=== PATIENT | female | born 1995 | race Caucasian/White ===

== ENCOUNTER 2016-11-06 22:28 | Emergency (ER) | payer MEDICAID ==
[2016-11-06] MEDS ORDERED: Hydromorphone 1 mg/ml Ampule IV ONE (22:55)
[2016-11-06] MEDS ORDERED: Phenergan 25 MG INJ IV ONE (22:55)
[2016-11-06] MEDS ORDERED: Phenergan 25 MG INJ ONE (23:00)
[2016-11-06] MEDS ORDERED: Sodium Chloride 0.9% 1000 ML 1,000 ML IV SCH (23:00)
[2016-11-06] MEDS ORDERED: Sodium Chloride 0.9% 1000 ML 1,000 ML ONE (23:01)
[2016-11-06] MEDS ORDERED: Hydromorphone 1 mg/ml Ampule ONE (23:01)
--- NOTE | 2016-11-06 23:01 | ERPHSYRPT ---
- History of Present Illness Time Seen by Provider: 11/06/16 22:46 Source: patient Exam Limitations: no limitations Patient Subjective Stated Complaint: "i am having chest pain. it goes into my stomach and back. it hurts when i take a deep breath" Triage Nursing Assessment: aox3, breathign easy unlabored, skin pink warm dry, steady gait from cot to bed Physician History: FOR THE PAST 3 DAYS PT HAS HAD CONSTANT CHEST PAIN, MID BACK PAIN AND DIFFUSE ABDOMINAL PAIN WITH NAUSEA. FOR THE PAST WEEK PT HAS HAD COUGH PRODUCTIVE OF CLEAR PHLEGM. REPORTEDLY 3 WEEKS AGO PT HAD A BY DR ASHLEY AT [facility] AND WAS RE-ADMITTED 2 DAYS LATER FOR INTERNAL BLEEDING AND RECEIVED 1 UNIT OF BLOOD. LAST BM WAS TODAY & WNL. Allergies/Adverse Reactions: No Known Drug Allergies Allergy (Verified 11/06/16 22:44) Home Medications: Ibuprofen 200 mg [Motrin 200 mg] 200 mg PO Q4-6HPRN PRN 11/06/16 [History] Hx Tetanus, Diphtheria Vaccination/Date Given: Yes Hx Influenza Vaccination/Date Given: No Hx Pneumococcal Vaccination/Date Given: No - Review of Systems Respiratory: Cough Cardiac: Chest Pain Abdominal/Gastrointestinal: Abdominal Pain, Nausea Musculoskeletal: Back Pain All Other Systems: Reviewed and Negative - Past Medical History Pertinent Past Medical History: No - Past Surgical History Past Surgical History: No Other Surgical History: -"i had internal bleeding with it" - Social History Smoking Status: Current every day smoker How long have you smoked: 2 Exposure to second hand smoke: Yes Drug Use: none Patient Lives Alone: No - Nursing Vital Signs Nursing Vital Signs: Initial Vital Signs Temperature 98.6 F Temperature Source Oral Pulse Rate [] 102 Pulse Rate 106 Respiratory Rate 16 Blood Pressure [] 114/54 Pain Intensity 0 - Physical Exam General Appearance: mild distress, alert Eye Exam: PERRL/EOMI Ears, Nose, Throat Exam: TMs normal, pharynx normal, moist mucous membranes Neck Exam: normal inspection Respiratory Exam: lungs clear Cardiovascular Exam: normal heart sounds Gastrointestinal/Abdomen Exam: soft, normal bowel sounds, tenderness (MILD DIFFUSE ABDOMINAL TENDERNESS) Back Exam: normal range of motion Extremity Exam: normal inspection Neurologic Exam: cooperative Skin Exam: warm, dry SpO2 Interpretation: normal SpO2: 100 Oxygen Delivery: Room Air - Course Nursing assessment & vital signs reviewed: Yes EKG Interpreted by Me: RATE (68), Sinus Rhythm, NORMAL AXIS, NORMAL QRS - Radiology Exams Chest X-ray Interpretation: Interpreted by me, No Pneumonia - CT Exams Abdomen/Pelvis CT Interpretation: Tele-radiologist Report (MODERATE DILATION OF THE INTRAHEPATIC AND COMMON BILE DUCTS AND MILD DILATION OF THE GALLBLADDER. THESE FINDINGS MAY BE DUE TO STASIS OR ILEUS. THERE IS NO EVIDENCE OF OBSTRUCTING MASSES OR CALCIFIED OBSTRUCTING STONES. THE TERMINAL ILEUM IS SLIGHTLY DILATED AND FILLED WITH GASEOUS STOOL WHICH MAY BE DUE TO REFLUX OR ILEUS. EARLY OBSTRUCTION IS LESS LIKELY. THE APPENDIX APPEARS NORMAL. THERE IS NO EVIDENCE OF ACUTE FOCAL RENAL OR URETERAL ABNORMALITIES.) Ordered Tests: Active Orders 24 hr Category Date Time Status Dental Laboratory Technician STAT Care 11/06/16 22:53 Active EKG-ER Only STAT Care 11/06/16 22:53 Active IV Insertion STAT Care 11/06/16 22:53 Active Pulse Oximetry (ED) STAT Care 11/06/16 22:53 Active ABDOMEN AND PELVIS W/0 CONTRAS [CT] Stat Exams 11/06/16 22:55 Taken CHEST 1 VIEW (PORTABLE) Stat Exams 11/06/16 22:54 Taken AMYLASE Stat Lab 11/06/16 22:58 Completed CBC W DIFF Stat Lab 11/06/16 22:58 Completed CMP Stat Lab 11/06/16 22:58 Completed LIPASE Stat Lab 11/06/16 22:58 Completed MAGNESIUM Stat Lab 11/06/16 22:58 Completed TROPONIN Q3H Lab 11/06/16 22:58 Completed TROPONIN Q3H Lab 11/07/16 02:00 Ordered TROPONIN Q3H Lab 11/07/16 05:00 Ordered TROPONIN Q3H Lab 11/07/16 08:00 Ordered TROPONIN Q3H Lab 11/07/16 11:00 Ordered UA Stat Lab 11/06/16 00:20 Completed Medication Summary Generic Name Dose Route Start Last Admin Trade Name Freq PRN Reason Stop Dose Admin Sodium Chloride 1,000 mls @ 100 mls/hr 11/06/16 23:00 11/06/16 23:02 Sodium Chloride 0.9% 1000 Ml IV 12/06/16 22:59 100 mls/hr .Q10H TAN Administration Discontinued Medications Generic Name Dose Route Start Last Admin Trade Name Freq PRN Reason Stop Dose Admin Hydromorphone HCl 1 mg 11/06/16 22:55 11/06/16 23:03 Hydromorphone 1 Mg/Ml Ampule IV 11/06/16 22:56 1 mg STAT ONE Administration Hydromorphone HCl Confirm 11/06/16 23:01 Hydromorphone 1 Mg/Ml Ampule Administered 11/06/16 23:02 Dose 1 mg .ROUTE .STK-MED ONE Sodium Chloride Confirm 11/06/16 23:01 Sodium Chloride 0.9% 1000 Ml Administered 11/06/16 23:02 Dose 1,000 mls @ ud .ROUTE .STK-MED ONE Promethazine HCl 12.5 mg 11/06/16 22:55 11/06/16 23:02 Phenergan 25 Mg Inj IV 11/06/16 22:56 12.5 mg STAT ONE Administration Promethazine HCl Confirm 11/06/16 23:00 Phenergan 25 Mg Inj Administered 11/06/16 23:01 Dose 25 mg .ROUTE .STK-MED ONE Lab/Rad Data: Laboratory Result Diagrams 11/06/16 22:58 11/06/16 22:58 Laboratory Results 11/06/16 11/06/16 11/06/16 Range/Units 22:58 22:58 22:58 WBC 8.3 (4.0-10.5) K/mm3 RBC 4.14 (4.1-5.4) M/mm3 Hgb 12.6 (12.0-16.0) gm/dl Hct 38.2 (35-47) % MCV 92.3 (78-100) fl MCH 30.4 (26-32) pg MCHC 33.0 (32-36) g/dl RDW 13.9 (11.5-14.0) % Plt Count 352 (150-450) K/mm3 MPV 10.5 H (6-9.5) fl Gran % 63.6 (36.0-66.0) % Lymphocytes % 28.5 (24.0-44.0) % Monocytes % 5.0 (0.0-12.0) % Eosinophils % 2.8 (0.00-5.0) % Basophils % 0.1 (0.0-0.4) % Basophils # 0.01 (0-0.4) Sodium 144 (136-145) mEq/L Potassium 3.7 (3.5-5.1) mEq/L Chloride 106 (98-107) mEq/L Carbon Dioxide 23.2 (21-32) mEq/L Anion Gap 18.0 H (5-15) MEQ/L BUN 13 (9-20) mg/dL Creatinine 0.83 (0.55-1.30) mg/dl Estimated GFR > 60 ML/MIN Glucose 92 (70-110) MG/DL Calcium 9.0 (8.5-10.1) mg/dL Magnesium 2.1 (1.8-2.4) mg/dL Total Bilirubin 0.3 (0.2-1.0) mg/dL AST 37 (15-37) U/L ALT 15 (12-78) U/L Alkaline Phosphatase 79 (46-116) U/L Troponin I < 0.017 (0.000-0.056) ng/ml Serum Total Protein 7.6 (6.4-8.2) gm/dL Albumin 3.6 (3.4-5.0) g/dL Amylase 38 (25-115) U/L Lipase 114 (73-393) U/L Ur Collection Type Urine Color (YELLOW) Urine Appearance (CLEAR) Urine pH (5-6) Ur Specific [place] (1.005-1.025) Urine Protein (Negative) Urine Glucose (UA) (NEGATIVE) mg/dL Urine Ketones (NEGATIVE) Urine Nitrite (NEGATIVE) Urine Bilirubin (NEGATIVE) Urine Urobilinogen (0-1) mg/dL Urine WBC (Auto) (NEGATIVE) Urine RBC (Auto) (0-5) Ilya/ul Specimen Received 11/06/16 Range/Units 00:20 WBC (4.0-10.5) K/mm3 RBC (4.1-5.4) M/mm3 Hgb (12.0-16.0) gm/dl Hct (35-47) % MCV (78-100) fl MCH (26-32) pg MCHC (32-36) g/dl RDW (11.5-14.0) % Plt Count (150-450) K/mm3 MPV (6-9.5) fl Gran % (36.0-66.0) % Lymphocytes % (24.0-44.0) % Monocytes % (0.0-12.0) % Eosinophils % (0.00-5.0) % Basophils % (0.0-0.4) % Basophils # (0-0.4) Sodium (136-145) mEq/L Potassium (3.5-5.1) mEq/L Chloride (98-107) mEq/L Carbon Dioxide (21-32) mEq/L Anion Gap (5-15) MEQ/L BUN (9-20) mg/dL Creatinine (0.55-1.30) mg/dl Estimated GFR ML/MIN Glucose (70-110) MG/DL Calcium (8.5-10.1) mg/dL Magnesium (1.8-2.4) mg/dL Total Bilirubin (0.2-1.0) mg/dL AST (15-37) U/L ALT (12-78) U/L Alkaline Phosphatase (46-116) U/L Troponin I (0.000-0.056) ng/ml Serum Total Protein (6.4-8.2) gm/dL Albumin (3.4-5.0) g/dL Amylase (25-115) U/L Lipase (73-393) U/L Ur Collection Type CLEAN CATCH Urine Color LT.YELLOW (YELLOW) Urine Appearance CLEAR (CLEAR) Urine pH 6.0 (5-6) Ur Specific [place] <=1.005 (1.005-1.025) Urine Protein NEGATIVE (Negative) Urine Glucose (UA) NEGATIVE (NEGATIVE) mg/dL Urine Ketones NEGATIVE (NEGATIVE) Urine Nitrite NEGATIVE (NEGATIVE) Urine Bilirubin NEGATIVE (NEGATIVE) Urine Urobilinogen 0.2 (0-1) mg/dL Urine WBC (Auto) NEGATIVE (NEGATIVE) Urine RBC (Auto) NEGATIVE (0-5) Ilya/ul Specimen Received 11/07/16 0020 - Progress Progress Note: 11/07/16 01:04 PT IS CURRENTLY PAIN FREE. - Departure Time of Disposition: 01:12 Departure Disposition: Home Clinical Impression: ABDOMINAL PAIN, CHEST PAIN Condition: Fair Critical Care Time: No Referrals: DOCTOR,NO FAMILY [Primary Care Provider] - Instructions: Chest Pain, Abdominal Pain-Adult Additional Instructions: FOLLOW UP WITH PRIVATE DOCTOR LATER TODAY. RETURN TO [facility] 2:00 PM TODAY FOR AN OUTPATIENT GALLBLADDER ULTRASOUND. DO NOT EAT OR DRINK UNTIL AFTER YOUR ULTRASOUND.
[2016-11-06 23:02] LABS: BASOPHIL % 0.1 % (0.0-0.4); Eosinophil % 2.8 % (0.00-5.0); Granulocytes % 63.6 % (36.0-66.0); Lymphocytes % 28.5 % (24.0-44.0); Mean Cell Volume 92.3 fl (78-100); Mean Corpuscular Hemoglobin 30.4 pg (26-32); Mean Platelet Volume 10.5 fl (6-9.5); Platelet Count 352 K/mm3 (150-450); Red Blood Count 4.14 M/mm3 (4.1-5.4); Red Cell Distribution Width 13.9 % (11.5-14.0); White Blood Count 8.3 K/mm3 (4.0-10.5)
[2016-11-06 23:25] LABS: ALBUMIN 3.6 g/dL (3.4-5.0); ALKALINE PHOSPHATASE 79 U/L (46-116); BILIRUBIN,TOTAL 0.3 mg/dL (0.2-1.0); BLOOD UREA NITROGEN 13 mg/dL (9-20); CHLORIDE 106 mEq/L (98-107); Carbon Dioxide 23.2 mEq/L (21-32); Glucose 92 MG/DL (70-110); LIPASE 114 U/L (73-393); MAGNESIUM 2.1 mg/dL (1.8-2.4); Potassium 3.7 mEq/L (3.5-5.1); SGOT/AST 37 U/L (15-37); SGPT/ALT 15 U/L (12-78); SODIUM 144 mEq/L (136-145); Total Protein 7.6 gm/dL (6.4-8.2)
[2016-11-07 00:29] VITALS: O2SAT 100
[2016-11-07 00:33] LABS: COMPLETE URINE MICROSCOPIC? NO; Collection Type CLEAN CATCH
[2016-11-07 01:16] VITALS: BP 130/46; PULSE 62
--- NOTE | 2016-11-07 09:08 | XRAY ---
Indication: Chest pain. Comparison: None Portable chest demonstrates normal heart, lungs, and bony thorax.
--- NOTE | 2016-11-07 09:13 | XRAY ---
Indication: Left abdominal pain and vomiting. Approximately 3 weeks . Multiple contiguous axial images obtained through the abdomen and pelvis without contrast as ordered. Comparison: January 28, 2015. Lung bases clear. Heart is not enlarged. Stomach distended with food/fluid. Noncontrasted stomach and bowel loops appear nonobstructed. Moderate colonic fecal debris predominantly in the ascending and transverse colon. Normal appendix. There remains a few tiny benign-appearing mesenteric nodes in the right abdomen. Uterus is enlarged with tiny pelvic free fluid presumed from recent gravid status. No free air. Gallbladder is mildly distended without gallstones. Minimal intrahepatic biliary prominence. Remaining liver, gallbladder, pancreas, spleen, adrenal glands, kidneys, ureters, bladder, and aorta appear unremarkable for noncontrast exam. Osseous structures intact. Lower anterior abdominal wall post surgical changes related to known section. No suspicious fluid or air collection. Impression: 1. Minimally distended gallbladder and biliary tree without gallstones. Gallbladder sonogram may yield further information if clinically warranted. 2. No acute intra-abdominal/pelvic abnormalities on this noncontrast exam. 3. Fecal stasis without obstruction and incidental findings related to recent gravid status. Comment: Preliminary interpretation was made by [facility]. No discrepancy. CT DI 28.13
== END 2016-11-07 01:24 | disposition home or self-care (01) ==
LOC: ED 22:28
DX: R10.9 Unspecified abdominal pain (principal); R07.89 Other chest pain; M54.9 Dorsalgia, unspecified; R11.0 Nausea
CPT/HCPCS: 36000; 36415; 71010; 74176; 80053; 81002; 82150; 83690; 83735; 84484; 85025; 93005; 93041; 96360; 96361; 96374; 96375; 99284; J1170; J2550

== ENCOUNTER 2017-01-17 21:45 | Emergency (ER) | payer MEDICAID ==
[2017-01-17] MEDS ORDERED: MORPHINE SULFATE 4 MG INJ IV ONE (22:06)
[2017-01-17] MEDS ORDERED: Sodium Chloride 0.9% 1000 ML 1,000 ML IV STA (22:06)
[2017-01-17] MEDS ORDERED: Phenergan 25 MG INJ IV ONE (22:06)
--- NOTE | 2017-01-17 22:09 | ERPHSYRPT ---
- History of Present Illness Time Seen by Provider: 01/17/17 22:06 Historian: patient Exam Limitations: no limitations Patient Subjective Stated Complaint: pt states she has a bad gallbladder and has been having increased pain n/v today. Triage Nursing Assessment: pt alert and oriented, answers questions approp. pt ambulatory with steady gait noted. respirations nonlabored with lungs cta. restless in bed, rocking back and forth holding abd. skin pink warm and dry. abd soft, hypo bowel sounds throughout. Physician History: FOR THE PAST 2.5 MONTHS PT HAS HAD THE SAME UPPER ABDOMINAL PAIN, CONSTANT FOR THE PAST 2 WEEKS. TONIGHT PT VOMITED X8. LAST BM WAS 2 DAYS AGO AND NOT DIARRHEAL. LAST DEPOPROVERA INJECTION WAS 2 MONTHS AGO. ABOUT 2 MONTHS AGO PT HAD AN ABDOMINAL CT WHICH SHOWED GALLSTONES, A GB ULTRASOUND AND A HIDA SCAN PER PT. PT HAS AN APPOINTMENT TO HAVE HER GALLBLADDER REMOVED ON 02/01/17 AT [facility]. PT ALSO C/O OCCASIONAL HEADACHES. Allergies/Adverse Reactions: No Known Drug Allergies Allergy (Verified 01/17/17 22:05) Home Medications: No Home Meds 1 ea MC UD 01/17/17 [History] Hx Tetanus, Diphtheria Vaccination/Date Given: Yes Hx Influenza Vaccination/Date Given: No Hx Pneumococcal Vaccination/Date Given: No Immunizations Up to Date: Yes - Review of Systems Abdominal/Gastrointestinal: Abdominal Pain, Vomiting, No Diarrhea Neurological: Headache All Other Systems: Reviewed and Negative - Past Medical History Pertinent Past Medical History: Yes GI Medical History: Gallbladder Disease - Past Surgical History Past Surgical History: Yes Other Surgical History: -"i had internal bleeding with it" - Social History Smoking Status: Current every day smoker How long have you smoked: 3 Exposure to second hand smoke: Yes Drug Use: none Patient Lives Alone: No - Female History Hx Last Menstrual Period: 1 week ago - Nursing Vital Signs Nursing Vital Signs: Initial Vital Signs Temperature 97.6 F Temperature Source Oral Pulse Rate 110 Respiratory Rate 24 Blood Pressure [Right Arm] 96/67 Pain Intensity 10 - Physical Exam General Appearance: alert Eye Exam: PERRL/EOMI Ears, Nose, Throat Exam: TMs normal, pharynx normal, moist mucous membranes Neck Exam: normal inspection Respiratory Exam: lungs clear Cardiovascular Exam: normal heart sounds Gastrointestinal/Abdomen Exam: soft, normal bowel sounds Back Exam: normal range of motion Extremity Exam: normal inspection, No pedal edema Neurologic Exam: alert, cooperative Skin Exam: warm, dry SpO2 Interpretation: normal SpO2: 100 Oxygen Delivery: Room Air - Course Nursing assessment & vital signs reviewed: Yes Ordered Tests: Active Orders 24 hr Category Date Time Status Clean Catch Urine Specimen STAT Care 01/17/17 22:06 Active IV Insertion STAT Care 01/17/17 22:06 Active AMYLASE Stat Lab 01/17/17 22:10 Completed CBC W DIFF Stat Lab 01/17/17 22:10 Completed CMP Stat Lab 01/17/17 22:10 Completed CULTURE,URINE Stat Lab 01/17/17 22:55 Received HCG QUALITATIVE,SERUM Stat Lab 01/17/17 22:10 Completed LIPASE Stat Lab 01/17/17 22:10 Completed UA W/ MICROSCOPIC Stat Lab 01/17/17 22:55 Completed Urine Triage Profile Stat Lab 01/17/17 22:10 Completed Medication Summary Generic Name Dose Route Start Last Admin Trade Name Freq PRN Reason Stop Dose Admin Ceftriaxone Sodium/Dextrose 1 g in 50 mls @ 100 mls/hr 01/17/17 23:11 Rocephin 1 Gm-D5w 50 Ml Bag IV 01/17/17 23:40 STAT STA Discontinued Medications Generic Name Dose Route Start Last Admin Trade Name Freq PRN Reason Stop Dose Admin Sodium Chloride 1,000 mls @ 999 mls/hr 01/17/17 22:06 01/17/17 22:14 Sodium Chloride 0.9% 1000 Ml IV 01/17/17 23:06 999 mls/hr .Q1H1M STA Administration Sodium Chloride Confirm 01/17/17 22:11 Sodium Chloride 0.9% 1000 Ml Administered 01/17/17 22:12 Dose 1,000 mls @ ud .ROUTE .STK-MED ONE Morphine Sulfate 4 mg 01/17/17 22:06 01/17/17 22:14 Morphine Sulfate 4 Mg Inj IV 01/17/17 22:07 4 mg STAT ONE Administration Morphine Sulfate Confirm 01/17/17 22:11 Morphine Sulfate 4 Mg Inj Administered 01/17/17 22:12 Dose 4 mg .ROUTE .STK-MED ONE Promethazine HCl 12.5 mg 01/17/17 22:06 01/17/17 22:14 Phenergan 25 Mg Inj IV 01/17/17 22:07 12.5 mg STAT ONE Administration Promethazine HCl Confirm 01/17/17 22:11 Phenergan 25 Mg Inj Administered 01/17/17 22:12 Dose 25 mg .ROUTE .STK-MED ONE Lab/Rad Data: Laboratory Result Diagrams 01/17/17 22:10 01/17/17 22:10 Laboratory Results 01/17/17 01/17/17 01/17/17 Range/Units 22:55 22:10 22:10 WBC (4.0-10.5) K/mm3 RBC (4.1-5.4) M/mm3 Hgb (12.0-16.0) gm/dl Hct (35-47) % MCV (78-100) fl MCH (26-32) pg MCHC (32-36) g/dl RDW (11.5-14.0) % Plt Count (150-450) K/mm3 MPV (6-9.5) fl Gran % (36.0-66.0) % Lymphocytes % (24.0-44.0) % Monocytes % (0.0-12.0) % Eosinophils % (0.00-5.0) % Basophils % (0.0-0.4) % Basophils # (0-0.4) Sodium 140 (136-145) mEq/L Potassium 3.7 (3.5-5.1) mEq/L Chloride 106 (98-107) mEq/L Carbon Dioxide 22.9 (21-32) mEq/L Anion Gap 14.7 (5-15) MEQ/L BUN 14 (9-20) mg/dL Creatinine 0.73 (0.55-1.30) mg/dl Estimated GFR > 60 ML/MIN Glucose 119 H (70-110) MG/DL Calcium 9.2 (8.5-10.1) mg/dL Total Bilirubin 0.20 (0.2-1.0) mg/dL AST 19 (15-37) U/L ALT 26 (12-78) U/L Alkaline Phosphatase 47 (46-116) U/L Serum Total Protein 7.9 (6.4-8.2) gm/dL Albumin 3.8 (3.4-5.0) g/dL Amylase 40 (25-115) U/L Lipase 97 (73-393) U/L Serum , Qual NEGATIVE (Negative) Ur Collection Type CLEAN CATCH Urine Color YELLOW (YELLOW) Urine Appearance SLIGHTLY CLOUDY (CLEAR) Urine pH 7.0 (5-6) Ur Specific [place] 1.020 (1.005-1.025) Urine Protein TRACE (Negative) Urine Glucose (UA) NEGATIVE (NEGATIVE) mg/dL Urine Ketones NEGATIVE (NEGATIVE) Urine Nitrite NEGATIVE (NEGATIVE) Urine Bilirubin NEGATIVE (NEGATIVE) Urine Urobilinogen 0.2 (0-1) mg/dL Urine WBC (Auto) NEGATIVE (NEGATIVE) Urine RBC (Auto) NEGATIVE (0-5) Ilya/ul Urine Microscopic RBC 5-10 (0-2) /HPF Urine Microscopic WBC 2-5 (0-5) /HPF Ur Epithelial Cells MANY (FEW) /HPF Urine Bacteria MANY (NEGATIVE) /HPF Urine Mucus MANY (NEGATIVE) /HPF Urine Opiates Level (NEGATIVE) Ur Methadone (NEGATIVE) Urine Barbiturates (NEGATIVE) Ur Phencyclidine (PCP) (NEGATIVE) Urine Amphetamine (NEGATIVE) U Benzodiazepine Level (NEGATIVE) Urine Cocaine (NEGATIVE) Urine Marijuana (THC) (NEGATIVE) Specimen Received 01/17/17 2200 01/17/17 01/17/17 Range/Units 22:10 22:10 WBC 9.4 (4.0-10.5) K/mm3 RBC 4.54 (4.1-5.4) M/mm3 Hgb 13.4 (12.0-16.0) gm/dl Hct 40.4 (35-47) % MCV 89.0 (78-100) fl MCH 29.5 (26-32) pg MCHC 33.2 (32-36) g/dl RDW 13.5 (11.5-14.0) % Plt Count 391 (150-450) K/mm3 MPV 10.4 H (6-9.5) fl Gran % 67.8 H (36.0-66.0) % Lymphocytes % 26.3 (24.0-44.0) % Monocytes % 5.1 (0.0-12.0) % Eosinophils % 0.7 (0.00-5.0) % Basophils % 0.1 (0.0-0.4) % Basophils # 0.01 (0-0.4) Sodium (136-145) mEq/L Potassium (3.5-5.1) mEq/L Chloride (98-107) mEq/L Carbon Dioxide (21-32) mEq/L Anion Gap (5-15) MEQ/L BUN (9-20) mg/dL Creatinine (0.55-1.30) mg/dl Estimated GFR ML/MIN Glucose (70-110) MG/DL Calcium (8.5-10.1) mg/dL Total Bilirubin (0.2-1.0) mg/dL AST (15-37) U/L ALT (12-78) U/L Alkaline Phosphatase (46-116) U/L Serum Total Protein (6.4-8.2) gm/dL Albumin (3.4-5.0) g/dL Amylase (25-115) U/L Lipase (73-393) U/L Serum , Qual (Negative) Ur Collection Type Urine Color (YELLOW) Urine Appearance (CLEAR) Urine pH (5-6) Ur Specific [place] (1.005-1.025) Urine Protein (Negative) Urine Glucose (UA) (NEGATIVE) mg/dL Urine Ketones (NEGATIVE) Urine Nitrite (NEGATIVE) Urine Bilirubin (NEGATIVE) Urine Urobilinogen (0-1) mg/dL Urine WBC (Auto) (NEGATIVE) Urine RBC (Auto) (0-5) Ilya/ul Urine Microscopic RBC (0-2) /HPF Urine Microscopic WBC (0-5) /HPF Ur Epithelial Cells (FEW) /HPF Urine Bacteria (NEGATIVE) /HPF Urine Mucus (NEGATIVE) /HPF Urine Opiates Level NEG. (NEGATIVE) Ur Methadone NEG. (NEGATIVE) Urine Barbiturates NEG. (NEGATIVE) Ur Phencyclidine (PCP) NEG. (NEGATIVE) Urine Amphetamine NEG. (NEGATIVE) U Benzodiazepine Level NEG. (NEGATIVE) Urine Cocaine NEG. (NEGATIVE) Urine Marijuana (THC) NEG. (NEGATIVE) Specimen Received - Departure Time of Disposition: 23:14 Departure Disposition: Home Clinical Impression: ABDOMINAL PAIN, UTI Condition: Fair Critical Care Time: No Instructions: Abdominal Pain-Adult, Urinary Tract Infection (UTI) Additional Instructions: FOLLOW UP WITH PRIVATE DOCTOR TOMORROW. Prescriptions: Promethazine HCl 25 mg [Phenergan 25 mg] 25 mg PO Q4H PRN PRN #14 tablet PRN Reason: Nausea/Vomiting Smz/Tmp Ds Tablet [Bactrim Ds Tablet] 1 udtab PO BID #20 tablet
[2017-01-17] MEDS ORDERED: Sodium Chloride 0.9% 1000 ML 1,000 ML ONE (22:11)
[2017-01-17] MEDS ORDERED: Phenergan 25 MG INJ ONE (22:11)
[2017-01-17] MEDS ORDERED: MORPHINE SULFATE 4 MG INJ ONE (22:11)
[2017-01-17 22:15] LABS: BASOPHIL % 0.1 % (0.0-0.4); Eosinophil % 0.7 % (0.00-5.0); Granulocytes % 67.8 % (36.0-66.0); Lymphocytes % 26.3 % (24.0-44.0); Mean Corpuscular Hemoglobin 29.5 pg (26-32); Mean Platelet Volume 10.4 fl (6-9.5); Monocytes % 5.1 % (0.0-12.0); Platelet Count 391 K/mm3 (150-450); Red Blood Count 4.54 M/mm3 (4.1-5.4); Red Cell Distribution Width 13.5 % (11.5-14.0); White Blood Count 9.4 K/mm3 (4.0-10.5)
[2017-01-17 22:27] LABS: ALBUMIN 3.8 g/dL (3.4-5.0); ALKALINE PHOSPHATASE 47 U/L (46-116); ANION GAP 14.7 MEQ/L (5-15); BLOOD UREA NITROGEN 14 mg/dL (9-20); CHLORIDE 106 mEq/L (98-107); Carbon Dioxide 22.9 mEq/L (21-32); Glucose 119 MG/DL (70-110); LIPASE 97 U/L (73-393); Potassium 3.7 mEq/L (3.5-5.1); SGOT/AST 19 U/L (15-37); SGPT/ALT 26 U/L (12-78); SODIUM 140 mEq/L (136-145); Total Protein 7.9 gm/dL (6.4-8.2)
[2017-01-17 23:05] LABS: Bacteria MANY /HPF (NEGATIVE); COMPLETE URINE MICROSCOPIC? YES; Collection Type CLEAN CATCH; Epithelial Cells MANY /HPF (FEW); Mucus MANY /HPF (NEGATIVE)
[2017-01-17 23:06] LABS: ADD URINE CULTURE? YES (NO)
[2017-01-17] MEDS ORDERED: ROCEPHIN 1 Gm-D5w 50 ml Bag** 1 G/50 ML IVPB IV STA (23:11)
[2017-01-17 23:12] VITALS: BP 93/47; PULSE 70
[2017-01-17 23:14] VITALS: O2SAT 100
[2017-01-17] MEDS ORDERED: ROCEPHIN 1 Gm-D5w 50 ml Bag** 1 G/50 ML IVPB IV ONE (23:14)
== END 2017-01-18 00:48 | disposition home or self-care (01) ==
LOC: ED 21:45
DX: R10.9 Unspecified abdominal pain (principal); N39.0 Urinary tract infection, site not specified
CPT/HCPCS: 36000; 36415; 80053; 80307; 81000; 82150; 83690; 84703; 85025; 87086; 96360; 96365; 96374; 96375; 99284; J0696; J2270; J2550

== ENCOUNTER 2017-02-01 09:42 | Day surgery (SDC) | payer OTHER ==
--- NOTE | 2017-01-29 08:49 | HP ---
DATE: 02/01/17 ADMISSION DIAGNOSIS: 1. SYMPTOMATIC CHOLELITHIASIS. ANTICIPATED PROCEDURE: 1. Cholecystectomy. PAST MEDICAL HISTORY: ALLERGIES: NONE. CURRENT MEDICATIONS: None. SURGERIES: 1, para 1. SOCIAL HISTORY: Negative. FAMILY HISTORY: Negative. REVIEW OF SYSTEMS: Negative. PHYSICAL EXAMINATION: Vital signs normal. CHEST: Clear. COR: Regular. IMPRESSION: 1. SYMPTOMATIC STONES. PLAN: Laparoscopic cholecystectomy.
[~2017-02-01 09:42] MED LIST: BRIDION 200MG/2ML IV ONE; DIPRIVAN 200 MG/20 ML IV ONE; Decadron 4 MG INJ IV ONE; Lactated Ringers 1,000 ML IV ONE; SUBLIMAZE 250 MCG/5 ML IV ONE; Sensorcaine 0.25% 10 ML ONE; Versed 2 MG/2 ML Injection IV ONE; Zemuron 100 MG/10 ML IV ONE; Zofran 4 MG/2 ML VIAL IV ONE
[2017-02-01] MEDS ORDERED: Lactated Ringers 1,000 ML IV SCH (10:30)
[2017-02-01] MEDS ORDERED: MEFOXIN 2 GM PREMIX** 2 GM/50 ML ML IV ONE (10:31)
[2017-02-01] MEDS ORDERED: Lactated Ringers 1,000 ML IV ONE (10:31)
[2017-02-01] MEDS ORDERED: MEFOXIN 2 GM PREMIX** 2 GM/50 ML ML IV SCH (11:00)
[2017-02-01] MEDS ORDERED: Zofran 4 MG/2 ML VIAL ONE (15:04)
[2017-02-01] MEDS ORDERED: TORAdol 30 mg Injection ONE (15:08)
[2017-02-01] MEDS ORDERED: SUBLIMAZE 100 MCG/2 ML ONE (15:18)
[2017-02-01 17:36] VITALS: BP 124/68; PULSE 62; O2SAT 100
--- NOTE | 2017-02-02 08:56 | OP ---
SURGERY DATE: 02/01/17 SURGERY TIME: 1414 PREOPERATIVE DIAGNOSIS: 1. SYMPTOMATIC CHOLELITHIASIS. POSTOPERATIVE DIAGNOSIS: 1. SYMPTOMATIC CHOLELITHIASIS. PROCEDURE: 1. Laparoscopic cholecystectomy. SURGEON: Yefri Hernandez M.D. ANESTHESIA: General endotracheal tube. COMPLICATIONS: None. CONDITION: Stable. INDICATION: Patient with upper abdominal pain and US positive. Seen and examined. Procedure discussed in detail. Wished to proceed. OPERATIVE PROCEDURE: Taken to surgery. General anesthetic. Routine prep and drape. Veress needle inserted. Opened to a pressure of 1. Insufflated to a pressure of 14. Four 5s initially. Good visualization. Cystic duct defined. Cystic artery defined. The upper epigastric 5 was changed to 10. Triply Ligaclipped cystic duct. Doubly Ligaclipped artery. Gallbladder rolled out of gallbladder fossa. Some small stones were picked up, yellow mulberry stones. The gallbladder removed through the epigastric port. The hole was closed with the hole closure device. The right gutter was irrigated. Was suctioned. Was totally dry and clean. No residual stones. The anterior surface of the small bowel and colon was satisfactory. CO2 was exsufflated. Skin closed with 4-0 Vicryl and Steri-strips. Patient tolerated the procedure satisfactory.
== END 2017-02-01 17:30 | disposition home or self-care (01) ==
LOC: SDC 09:42
PROVIDERS: ATTEND Surgery
PROC: 0FT44ZZ Resection of Gallbladder, Percutaneous Endoscopic Approach (ICD-10-PCS; principal; 2017-02-01)
DX: K80.20 Calculus of gallbladder without cholecystitis without obstruction (principal)
CPT/HCPCS: 00790; 36415; 84703; 88304; J0694; J1100; J1885; J2250; J2405; J2704; J3010

== ENCOUNTER 2019-09-03 03:44 | Inpatient (IN) | payer OTHER ==
[2019-09-03] MEDS ORDERED: Lactated Ringers 1,000 ML IV ONE (04:14)
[2019-09-03] MEDS ORDERED: Pepcid 20 MG VIAL IV SCH (04:15)
[2019-09-03] MEDS ORDERED: BICITRA 30 ML CUP PO SCH (04:15)
[2019-09-03] MEDS ORDERED: Reglan 10 MG/2 ML IV SCH (04:15)
[2019-09-03] MEDS ORDERED: Lactated Ringers 1,000 ML IV SCH (04:30)
[2019-09-03] MEDS ORDERED: CEFAZOLIN 2 GM-D5W BAG** 2 GM/50 ML ML IV SCH (04:30)
[2019-09-03 04:40] LABS: Hematocrit 31.8 % (35-47); Hemoglobin 10.3 gm/dl (12.0-16.0); Mean Cell Volume 88.3 fl (78-100); Mean Corpuscular Hemoglobin 28.6 pg (26-32); Mean Corpuscular Hgb Concent. 32.4 g/dl (32-36); Mean Platelet Volume 10.2 fl (7.5-11.0); Platelet Count 293 K/mm3 (150-450); Red Cell Distribution Width 13.6 % (11.5-14.0); White Blood Count 7.3 K/mm3 (4.0-10.5)
[2019-09-03 04:51] LABS: Appearance CLEAR (CLEAR); Bilirubin NEGATIVE (NEGATIVE); Blood NEGATIVE Ery/ul (0-5); Epithelial Cells RARE /HPF (FEW); Glucose NEGATIVE (NEGATIVE); Ketones TRACE (NEGATIVE); Leukocyte Esterase NEGATIVE (NEGATIVE); Mucus SLIGHT /HPF (NEGATIVE); Nitrite NEGATIVE (NEGATIVE); Protein,Urine Dip NEGATIVE (Negative); Specific Gravity 1.012 (1.005-1.025); Urobilinogen NEGATIVE mg/dL (0-1)
[2019-09-03 05:05] LABS: Amphetamine,Urine NEGATIVE (NEGATIVE); Barbiturate,Urine NEGATIVE (NEGATIVE); Benzodiazepine,Urine NEGATIVE (NEGATIVE); Cocaine,Urine NEGATIVE (NEGATIVE); Methadone,Urine NEGATIVE (NEGATIVE); Opiate,Urine NEGATIVE (NEGATIVE); PCP,Urine NEGATIVE (NEGATIVE); THC,Urine NEGATIVE (NEGATIVE)
[2019-09-03 05:06] LABS: INR 0.99 (0.8-3.0); PROTIME 11.2 SECONDS (9.95-12.35)
[2019-09-03 05:09] LABS: PTT 24.2 SECONDS (25.3-37.0)
[2019-09-03] MEDS ORDERED: Astramorph-Pf 5 MG/10 ML ONE (07:22)
[2019-09-03] MEDS ORDERED: Zofran 4 MG/2 ML VIAL ONE (07:28)
[2019-09-03] MEDS ORDERED: Ephedrine Sulfate 50 MG/ML ONE (07:42)
[2019-09-03] MEDS ORDERED: Pitocin 10 UNITS/ML ONE (07:50)
[2019-09-03] MEDS ORDERED: Naropin 0.5% 30 ML VIAL ONE (08:07)
[2019-09-03] MEDS ORDERED: TORAdol 30 mg Injection ONE (08:07)
[2019-09-03] MEDS ORDERED: Xylocaine-Mpf 2% 5 Ml Vial ONE (08:07)
[2019-09-03] MEDS ORDERED: Decadron 4 MG INJ ONE (08:07)
[2019-09-03] MEDS ORDERED: Anucort-HC SUPPOSITORY PR PRN (08:17)
[2019-09-03] MEDS ORDERED: HOLD NARCOTIC ANALGESICS AND SEDATIVES X24 HR MC PRN (08:17)
[2019-09-03] MEDS ORDERED: Ambien 10 MG PO PRN (08:17)
[2019-09-03] MEDS ORDERED: Sodium Chloride 0.9% 10 ML FLUSH Syringe IJ PRN (08:17)
[2019-09-03] MEDS ORDERED: BENADRYL 50 MG/ML IV PRN (08:17)
[2019-09-03] MEDS ORDERED: TUCKS TP PRN (08:17)
[2019-09-03] MEDS ORDERED: CLARITIN 10 MG PO PRN (08:17)
[2019-09-03] MEDS ORDERED: LANSINOH 40 GM TOP PRN (08:17)
[2019-09-03] MEDS ORDERED: Dermoplast Spray TP PRN (08:17)
[2019-09-03] MEDS ORDERED: Zofran 4 MG/2 ML VIAL IV PRN (08:17)
[2019-09-03] MEDS ORDERED: CORTISONE 1% CREAM TP PRN (08:17)
[2019-09-03] MEDS ORDERED: Nubain 10 MG/ML IV PRN (08:17)
[2019-09-03] MEDS ORDERED: TYLENOL EXTRA STRENGTH 500 MG PO PRN (08:17)
[2019-09-03] MEDS ORDERED: Mylicon 80MG PO PRN (08:17)
[2019-09-03] MEDS ORDERED: Phenergan 25 MG INJ IM PRN (08:17)
[2019-09-03] MEDS ORDERED: DEMEROL 50 MG IV PRN ×2 (08:17)
[2019-09-03] MEDS ORDERED: Dulcolax 10 MG SUPP PR PRN (08:17)
[2019-09-03] MEDS ORDERED: Narcan 0.4 MG/ML IV PRN (08:17)
[2019-09-03] MEDS ORDERED: MORPHINE SULFATE 2 MG INJ IV PRN (08:17)
[2019-09-03 08:33] LABS: Appearance SLIGHTLY CLOUDY (CLEAR); Bacteria FEW /HPF (NEGATIVE); Bilirubin NEGATIVE (NEGATIVE); Blood NEGATIVE Ery/ul (0-5); Epithelial Cells RARE /HPF (FEW); Glucose NEGATIVE (NEGATIVE); Hyaline Casts 0-2 /LPF (0-2); Ketones SMALL (NEGATIVE); Leukocyte Esterase NEGATIVE (NEGATIVE); Mucus MANY /HPF (NEGATIVE); Nitrite NEGATIVE (NEGATIVE); Protein,Urine Dip 30 (Negative); RBC 0-2 /HPF (0-2); Specific Gravity 1.028 (1.005-1.025); Urobilinogen NEGATIVE mg/dL (0-1); WBC 0-2 /HPF (0-5)
[2019-09-03] MEDS ORDERED: DEMEROL 50 MG ONE (08:43)
[2019-09-03] MEDS ORDERED: M-M-R II Vaccine With Diluent SQ ONE (09:00)
[2019-09-03] MEDS: Dextrose 5%-Lr IV Solution 1000 ML 1,000 ML IV SCH ×2 (09:08→16:48)
--- NOTE | 2019-09-03 09:51 | OP ---
SURGERY DATE/TIME: 09/03/2019 0729 PREOPERATIVE DIAGNOSES: 1) Term intrauterine . 2) History of prior section. POSTOPERATIVE DIAGNOSES: 1) Term intrauterine . 2) History of prior section. PROCEDURE: Repeat low transverse section. SURGEON: Cas Bhatt M.D. ESTIMATED BLOOD LOSS: 400 ml. IV FLUIDS: 2 liters of crystalloid. URINE OUTPUT: 30 ml of clear straw-colored urine. ANESTHESIA: Spinal by Janes Argueta CRNA. SPECIMENS: None. DESCRIPTION OF PROCEDURE: After informed written consent was obtained, the patient was taken to the operating room. She underwent spinal anesthesia and was prepped and draped in the usual sterile fashion. A low transverse skin incision was made by knife and carried down through the subcutaneous fat to the level of the fascia. The fascia was nicked on both sides of the midline and extended in horizontal fashion using curved Arroyo scissors. The superior free edge of the fascia was then grasped with Anupam clamps and the underlying rectus muscles were dissected free. The same was repeated inferiorly. The peritoneal cavity was then opened bluntly and extended horizontal. Bladder blade was inserted and bladder flap was created and reflected over the lower uterine segment. A horizontal uterine incision was made by knife and carried down to the level of the amniotic membranes which were carefully artificially ruptured. Clear fluid was encountered. A viable male delivered from the vertex presentation with nuchal x1. He had a strong cry immediately upon delivery. Oropharynx and nares were bulb suctioned free by Dr. Florence. The cord was clamped and cut and then she robed/scrubbed to care for the . The placenta was manually extracted from the uterus and the uterus was exteriorized. Amniotic membranes were swept from the uterine cavity with lap sponge and then the uterine incision was closed with #1 chromic in a running locked fashion. Good closure and good hemostasis were achieved. The posterior cul-de-sac was wiped free of blood and clot and then the uterus was returned to the peritoneal cavity. Lateral gutters were wiped free of blood and clot. Again the uterine incision was carefully inspected and noted to be hemostatic with good closure. Next, the fascia was closed with 0 Vicryl in a running fashion. Good closure and good hemostasis were achieved at this level. The subcutaneous fat was then irrigated with warm, sterile saline. Finally the skin layer was closed with 4-0 undyed Vicryl in a running subcuticular fashion. Steri-Strips and occlusive dressing were placed over the incision. The patient was transferred to the recovery in good condition.
[2019-09-03] MEDS ORDERED: Adacel Vial IM ONE (10:00)
[2019-09-03] MEDS: Colace 100 MG PO SCH ×2 (11:13→22:17)
[2019-09-03] MEDS: FERREX 150 PO SCH (11:14)
[2019-09-03] MEDS: PERCOCET TABLET 5/325MG PO PRN (23:32)
[2019-09-04] MEDS: PERCOCET TABLET 5/325MG PO PRN (04:09)
[2019-09-04 05:10] LABS: Absolute Neutrophil Ct (ANC) 6.86 (1.4-6.9); BASOPHIL % 0.2 % (0.0-0.4); Basophil (Absolute #) 0.02 (0-0.4); Eosinophil % 0.1 % (0.00-5.0); Eosinophil (Absolute #) 0.01 (0-0.5); Hematocrit 27.2 % (35-47); Hemoglobin 8.5 gm/dl (12.0-16.0); Lymphocyte (Absolute #) 2.25 (1.0-4.6); Lymphocytes % 21.9 % (24.0-44.0); Mean Corpuscular Hemoglobin 28.4 pg (26-32); Mean Corpuscular Hgb Concent. 31.3 g/dl (32-36); Mean Platelet Volume 10.8 fl (7.5-11.0); Monocyte (Absolute #) 1.12 (0.0-1.3); Monocytes % 10.9 % (0.0-12.0); Neutrophil % 66.9 % (36.0-66.0); Platelet Count 275 K/mm3 (150-450); Red Blood Count 2.99 M/mm3 (4.1-5.4); Red Cell Distribution Width 13.6 % (11.5-14.0); White Blood Count 10.3 K/mm3 (4.0-10.5)
[2019-09-04] MEDS: MOTRIN 400 MG PO PRN ×2 (08:16→15:39)
[2019-09-04] MEDS: Colace 100 MG PO SCH ×2 (09:05→21:04)
[2019-09-04] MEDS: NORCO 5/325 MG PO PRN ×2 (09:05→21:04)
[2019-09-04] MEDS: FERREX 150 PO SCH (09:05)
[2019-09-05] MEDS: MOTRIN 400 MG PO PRN ×2 (00:04→08:59)
[2019-09-05 01:12] VITALS: O2SAT 99
[2019-09-05] MEDS: NORCO 5/325 MG PO PRN (06:16)
[2019-09-05 08:46] LABS: Absolute Neutrophil Ct (ANC) 4.04 (1.4-6.9); BASOPHIL % 0.3 % (0.0-0.4); Basophil (Absolute #) 0.02 (0-0.4); Eosinophil % 1.3 % (0.00-5.0); Eosinophil (Absolute #) 0.09 (0-0.5); Hematocrit 27.9 % (35-47); Hemoglobin 8.8 gm/dl (12.0-16.0); Lymphocyte (Absolute #) 2.32 (1.0-4.6); Lymphocytes % 32.8 % (24.0-44.0); Mean Cell Volume 91.2 fl (78-100); Mean Corpuscular Hemoglobin 28.8 pg (26-32); Mean Corpuscular Hgb Concent. 31.5 g/dl (32-36); Mean Platelet Volume 10.3 fl (7.5-11.0); Monocytes % 8.5 % (0.0-12.0); Neutrophil % 57.1 % (36.0-66.0); Platelet Count 239 K/mm3 (150-450); Red Blood Count 3.06 M/mm3 (4.1-5.4); White Blood Count 7.1 K/mm3 (4.0-10.5)
--- NOTE | 2019-09-05 08:54 | PCM.DS ---
Discharge Summary Date of Admission: 09/03/19 04:00 Admitting Physician: JD LUCIO Consults: Consults on Case 09/03/19 04:14 Notify Physician OF ADMISSION 09/03/19 08:17 Notify Anesthesia Provider PRN 09/03/19 08:18 Notify Physician Primary Care Provider: JD LUCIO Allergies Allergies No Known Drug Allergies Allergy (Verified 02/01/17 09:59) Hospital Summary - Hospital Course Hospital Course: Pt was admitted as 24 yo at 39 wks for repeat . Her surgery was done by Dr. Lucio; for full details, see his operative note. She has done well postoperatively. She did have Hgb of 8.3 yesterday; rechecking today. She does have some lightheadedness if she stands holding the baby for too long. Mj po. . Will be discharged to home today. Of note, she apparently lost her housing just prior to admission; she is living with someone currently (parents of first child's FOB) and says she has everything she needs. OB navigator will contact patient before her discharge to discuss more. - Vitals & Intake/Output Vital Signs: Vital Signs Temperature 98.0 F 09/05/19 08:00 Pulse Rate 69 09/05/19 08:00 Respiratory Rate 18 09/05/19 08:00 Blood Pressure 107/53 09/05/19 08:00 O2 Sat by Pulse Oximetry 99 09/04/19 21:05 Intake & Output: Intake & Output 09/02/19 09/03/19 09/04/19 09/05/19 11:59 11:59 11:59 11:59 Intake Total 3693 3000 Output Total 1650 3 Balance 2043 2997 Weight 115.666 kg - Lab Result Diagrams: 09/04/19 04:20 Micro Results-Entire Visit: Microbiology 09/03/19 07:40 Urine Culture - Final Catherized NO GROWTH Discharge Exam General Appearance: no apparent distress, alert Neurologic Exam: oriented x 3, cooperative Respiratory Exam: normal breath sounds, lungs clear, No crackles/rales, No rhonchi, No wheezing Cardiovascular Exam: regular rate/rhythm, normal heart sounds, No murmur Gastrointestinal/Abdomen Exam: soft, normal bowel sounds, other (fundus firm under umbilicus. wound intact, no active bleeding, no erythema/induration/ exudate) Extremity Exam: No pedal edema, No swelling Skin Exam: normal color, warm, dry, No rash Final Diagnosis/Problem List - Final Discharge Diagnosis/Problem (1) delivery delivered Current Visit: Yes Status: Acute Assessment & Plan: POD #2, doing well, home today with baby. . Code(s): O82 - ENCOUNTER FOR DELIVERY WITHOUT INDICATION (2) Anemia Current Visit: Yes Status: Acute Assessment & Plan: Recheck CBC this morning. Home on FeSO4. Code(s): D64.9 - ANEMIA, UNSPECIFIED - Discharge Disposition: Home, Self-Care Condition: Good Prescriptions: New Docusate Sodium 100 mg [Colace 100 MG] 100 mg PO BID PRN #30 capsule PRN Reason: Constipation Ferrous Sulfate 325 mg [Feosol 325 mg] 325 mg PO DAILY #30 tablet Ibuprofen 800 mg PO TID PRN #35 tablet PRN Reason: Pain Lanolin 40 gm [Lansinoh 40 gm] 1 cm TOP PRN PRN #1 tube PRN Reason: Pain Hydrocodone/APAP 5-325 Tab^^^ [[place] 5-325 Tablet^^^] 1 each PO Q6H PRN #28 tablet MDD 4 PRN Reason: Severe Pain Witch Jerilyn [Tucks] 1 each TP PRN PRN #1 box PRN Reason: Itching Continue Vits W-Ca,Fe,FA(<1Mg) [] 1 tab PO DAILY Follow up with: JD LUCIO MD [Primary Care Provider] - 1 Week
[2019-09-05] MEDS: Colace 100 MG PO SCH (08:59)
[2019-09-05] MEDS: FERREX 150 PO SCH (08:59)
[2019-09-05 17:18] VITALS: BP 125/67; PULSE 83
== END 2019-09-05 13:30 | disposition home or self-care (01) | DRG 788 ==
LOC: OB 04:00
PROVIDERS: ADMIT Family Medicine; ATTEND Family Medicine
PROC: 10D00Z1 Extraction of Products of Conception, Low, Open Approach (ICD-10-PCS; principal; 2019-09-03)
DX: O34.211 Maternal care for low transverse scar from previous cesarean delivery (principal); Z3A.39 39 weeks gestation of pregnancy; Z37.0 Single live birth; D64.9 Anemia, unspecified
CPT/HCPCS: 36415; 64488; 76937; 76942; 80307; 81001; 85025; 85027; 85610; 85730; 87086; 87340; 90471; 90707; 94799; J0690; J1100; J1885; J2175; J2274; J2405; J2550; J2590; J2795; L0625; A9270-GY